=== PATIENT | female | born 2005 ===

== ENCOUNTER 2024-10-25 15:09 | Outpatient (AMB) | payer MEDICAID, SELFPAY ==
[2024-10-25 15:20] VITALS: BP 109/67; PULSE 103; RESP 16; TEMP 36.6; O2SAT 97; BMI 23.0
--- NOTE | 2024-10-25 15:20 | OBCLNT_ITS ---
Vital Signs 10/25/24 15:20 Height 1.63 m Height Method Stated Weight 60.895 kg Weight Measurement Method Standing Scale BMI 23.0 BP 109/67 Blood Pressure Source Automatic Cuff Blood Pressure Location Left Upper Arm Position Sitting Respiration 16 Pulse 103 H Pulse Source Monitor Temp 97.8 F Temp Source Oral Pulse Oximetry (%) 97 Oxygen Delivery Method Room Air Allergies/Home Meds Allergies & Medications Allergies No Known Allergies Allergy (Verified 10/25/24 15:25) Medication Reconciliation vits no.130-ferrous fum 27 mg iron-folic acid 800 mcg tablet ( Vitamin) 1 tab PO QDAY 03/04/24 [History Confirmed 10/25/24] docusate sodium 100 mg capsule (Colace) 100 mg PO BID #60 caps 03/13/24 [Rx Confirmed 10/25/24] ferrous sulfate 325 mg (65 mg iron) tablet (FeroSul) 325 mg PO QDAY 03/13/24 [History Confirmed 10/25/24] ibuprofen 800 mg tablet 800 mg PO Q6H PRN pain #120 tabs 03/13/24 [Rx Confirmed 10/25/24] lanolin 50 % topical ointment 1 applic topical TID PRN skin irritation #15 tubes 03/13/24 [Rx Confirmed 10/25/24] Intake Visit Data Collection New Patient or Established: Established Patient (seen at [facility] within 3 years) Reason for Visit:: care Seen by Clinical Staff ONLY (RN/MA): No Log Operations Coordinator Required: No Do You Feel Safe at Home: Yes Authorities Contacted: N/A PCP or OBGYN visit in last 3 months: No Hx Now: Yes Are you currently on any form of Control: No Last menstrual period: 05/18/24 Pain Present Currently: No Pain Scale Used: Linda-Yan/Numerical Pain scale:: 0 Smoking Status Smoking Status: Never smoker Questionnaires Covid-19 Vaccine Questionnaire Has patient been vacinated for Covid-19 Have you been vacinated for Covid-19: No PHQ-9 PHQ-2 Over the last 2 weeks, how often have you been bothered by any of the following problems? 1. Little interest or pleasure in doing things: not at all 2. Feeling down, depressed, or hopeless: not at all Total score: 0 PHQ-9 3. Trouble falling or staying asleep, or sleeping too much: Not at all 4. Feeling tired or having little energy: Not at all 5. Poor appetite or overeating: Not at all 6. Feeling bad about yourself - or that you are a failure or have let yourself or your family down: Not at all 7. Trouble concentrating on things, such as reading the newspaper or watching television: Not at all 8. Moving or speaking so slowly that other people could have noticed? - Or the opposite - being so fidgety or restless that you have been moving around a lot more than usual: not at all 9. Thoughts that you would be better off or of hurting yourself in some way: Not at all Total score: 0 Source: Developed by Drs. Boyd Fontanez, Margarita Del Rio, Bert Rogers and colleagues, with an educational sheila from [employer] Depression screen completed yes Social History Living Situation History Marital Status: Single Lives With: Family Housing: Apartment Housing Other:: Patient stays at home with a 7-month-old daughter. The FOB works the [employer] Tobacco History Smoking Status: Never smoker Second Hand Smoke Exposure: Yes Alcohol History Alcohol Intake: Never Substance Use History Substance Use: no Domestic Abuse History Do You Feel Safe at Home: Yes Past Medical History Past Medical History Have you ever been diagnosed with any of the following: Neurological Problems Meningitis: No Seizures: No Migraine: No Cardiology Problems Cardiac Arrhythmia: No Heart Murmur: No Hypercholesterolemia: No Deep Vein Thrombosis: No Hypertension: No Respiratory Problems Asthma: No Tuberculosis: No Pulmonary Embolism: No Sleep Apnea: No Stomache/Intestinal Problems Celiac Disease: No Gall Bladder Disease: No Colitis: No Diverticulitis: No Irritable Bowel: No Obesity: No Genital/Urinary Problems Renal Disease: No Kidney Stones: No Reproductive Problems Breast Cancer: No Endometriosis: No Fibroids: No Genital Herpes: No Gonorrhea: No Pelvic Inflammatory Disease: No Polycystic Ovarian Syndrome: No Previous Pregnancies: Yes (Vaginal delivery of March 2024 baby weighed 7 pounds 4 ounces. No epidural) Syphilis: No Musculoskeletal Problems Arthritis: No Rheumatoid Arthritis: No Scoliosis: No Fibromyalgia: No Head,Eye,Nose,Throat Problems Glaucoma: No Endocrine Problems Diabetes Mellitus Type 2: No Hyperthyroidism: No Hypothyroidism: No Thyroid Cancer: No Systemic Lupus Erythematosus: No Blood Problems Anemia: Yes (during ) Clotting Problems: No Psychologic Problems Depression: No Anxiety: No Attention Deficit Disorder: No Depression: No Other Problems Hospitalization: Yes (For vaginal delivery March 2024) Autoimmune Disease: No Blood Transfusions: No Chicken Pox: No Surgical History Appendectomy: No Bariatric Surgery: No Breast Surgery: No Cholecystectomy: No History of Present Illness HPI Narrative The patient is a 19-year-old -0-0-1 who just had a baby in March 2024 presents as a new OB. Patient's LMP was 05/18/2025 giving her a due date of 02/22/2025 she is about 18 weeks today and does feel movement. OB Initial Visit Menstrual History Menstrual reliability: definite Flow: normal Menstrual regularity: regular Monthly: Yes Age at menarche: 9 On control pills at conception: No Date of positive home test: 06/05/24 Associated symptoms (LMP): Denies amenorrhea, nausea, vomiting, fatigue, breast tenderness, urinary frequency, irritability, bloating or other OB History : 2 Para: 1 Hx Total # of Abortions (Spontaneous & Elective): 0 # of Living Children: 1 Delivery History 1st : Child's name: Ananda date: 03/24/24 sex: female Gestational age at delivery (weeks): 40 Delivery type: vaginal weight (lbs): 3356.584 g Delivery complications: No complications no epidural she delivered by one of the local midwives. Infection History & Risk Evaluation History of STDs: chlamydia HIV risk evaluation: low risk Hepatitis B risk evaluation: low risk Patient or partner has history of Genital Herpes: No Varicella/chicken pox status: immunized Genetic Screening & History Genetic Screening/Teratology Counseling - Includes patient, baby's father, or anyone in either family with: 1. Patient's age 35 years or older as of estimated date of delivery: No 2. Thalassemia (Lebanese, Korean, Mediterranean, or Background); MCV less than 80: No 3. Neural Tube Defect (Meningomyelocele, Spina Bifida, or Anencephaly): No 4. Congenital Heart Defect: No 5. Down Syndrome: No 6. Faustino-Sachs (Ashkenazi Yarsani, Cajun, Moldovan Swiss): No 7. Emile Disease (Ashkenazi Yarsani): No 8. Familial Dysautonomia (Ashkenazi Yarsani): No 9. Sickle Cell Disease or Trait (): No 10. Hemophilia or other blood disorders: No 11. Muscular Dystrophy: No 12. Cystic Fibrosis: No 13. [place]ba's Chorea: No 14. Mental Retardation/Autism: No 15. Other inherited genetic or chromosomal disorder: No 16. Maternal Metabolic Disorder (EG,TYPE 1 Diabetes, PKU): No 17. Patient or baby's father had a child with defects not listed above: No 18. Recurrent loss or a stillbirth: No 19. Medications (including supplements, vitamins, herbs or otc drugs)/illicit/recreational drugs/alcohol since last menstrual period: No 20. Any other: No Comments/Counseling: Patient desires NIPT. Infection History 1. Live with someone with TB or exposed to TB: No 2. Rash or viral illness since last menstrual period: No 3. Hepatitis B,C: No 4. History of STD: chlamydia Other (see comments) Source: [employer] OB Flowsheet OB Flowsheet Initial Weight: Not Recorded Date -?-?-?-?-?-?-?-?-?-?-?-?- EGA Weight Edema CTX Effacement BP Fundal ht Pres Dilation Effacement Station Visit Note Alb Glu FHR Mov 10/25/24 -?-?-?-?-?-?-?-?-?-?-?-?- 20w 0d 60.895 kg 109/67 140 Review of Systems Constitutional Constitutional: Reports system reviewed and no additional complaints, except as documented and Denies fatigue Comments: Patient states she is tired. She stays at home. The father the baby, Domingo, works in the field. Her daughter is just getting active. She denies nausea vomiting or vaginal bleeding. Gastrointestinal Gastrointestinal: Denies bloating, Denies nausea and Denies vomiting Genitourinary Genitourinary: Denies amenorrhea and Denies urinary frequency Psychiatric Psychiatric: Denies irritability Endocrine Endocrine: Denies fatigue Exam General Limitations: no limitations General Appearance: alert, in no apparent distress, comfortable and cooperative Head Head exam: atraumatic, normocephalic and normal inspection Neck Neck exam: Present normal inspection, full ROM and trachea midline Resp Respiratory exam: Present normal lung sounds bilaterally Card Cardiovascular exam: Present regular rate, normal rhythm and normal heart sounds Abdominal Abdominal exam: Present soft Bimanual exam: Present uterine enlargement (21 week size) Exp OB exam: Present deferred Speculum exam: Present other (deferred) Back Back exam: Present normal inspection and full ROM Psych Psychiatric exam: Present normal affect and normal mood Skin Skin exam: Present warm, dry, intact and normal color Assessment & Plan Diagnosis / Problem List (1) : Status: Acute Qualifiers: Weeks of gestation: 20 weeks Qualified Code(s): Z3A.20 - 20 weeks gestation of Plan: Get PNC labs, Offer NIPT. Order 20 week US. Additional Plan Follow Up: 4 Weeks Office Procedures OB Clinic LOC & Office Proc's Nursing/Assessment Patient Status: Established Patient OB Clinic Nursing Assessment: Medication Reconciliation, Update PMH in EMR and Vital Signs OB Clinic Coordination of Care: Complex Care and Chronic Disease 1-5, Consent,records obtained, informed consent, Education Simp Pt/Fam, Lab and Imaging orders and Staff clarify orders Special Needs: Heart tones Miscellaneous Interventions: Pelvic/Pap Smear Set up Established Patient Charge Established Patient Point Assignment: 150 Established Patient Point Charge: EP Level 4 (120-155) IT HELP DESK ANALYST: Papsmear Pap Smear Procedure Chap[place] in room during procedure?: No OB Ultrasound OB Ultrasound Indication(s):: Size and dates Ultrasound technique:: transabdominal Gestational sac assessment: Presence, location, size, shape:: Intrauterine with heart tones as noted abdominal circumference 19 and 1 sevenths weeks femur length 21-5/7 weeks head measurements 21 weeks
== END 2024-10-25 15:50 | disposition home or self-care (01) ==
LOC: HODSOBC 15:09
PROVIDERS: Supervising Provider Obstetrics & Gynecology; Visit Provider Obstetrics & Gynecology
DX: Z34.82 Encounter for supervision of other normal pregnancy, second trimester (principal); Z3A.20 20 weeks gestation of pregnancy
CPT/HCPCS: 99214; G0463

== ENCOUNTER 2024-11-29 13:26 | Outpatient (AMB) | payer MEDICAID, SELFPAY ==
--- NOTE | 2024-11-29 13:50 | AMB.OBVISIT ---
Vital Signs 11/29/24 13:51 Height 1.63 m Height Method Stated Weight 63.276 kg Weight Measurement Method Standing Scale BMI 23.8 BP 105/66 Blood Pressure Source Automatic Cuff Blood Pressure Location Left Upper Arm Position Sitting Respiration 16 Pulse 100 Pulse Source Monitor Temp 97.2 F Temp Source Oral Pulse Oximetry (%) 99 Oxygen Delivery Method Room Air Allergies/Home Meds Allergies & Medications Allergies No Known Allergies Allergy (Verified 11/29/24 13:52) Medication Reconciliation vits no.130-ferrous fum 27 mg iron-folic acid 800 mcg tablet ( Vitamin) 1 tab PO QDAY 03/04/24 [History Confirmed 11/29/24] docusate sodium 100 mg capsule (Colace) 100 mg PO BID #60 caps 03/13/24 [Rx Confirmed 11/29/24] ferrous sulfate 325 mg (65 mg iron) tablet (FeroSul) 325 mg PO QDAY 03/13/24 [History Confirmed 11/29/24] ibuprofen 800 mg tablet 800 mg PO Q6H PRN pain #120 tabs 03/13/24 [Rx Confirmed 11/29/24] lanolin 50 % topical ointment 1 applic topical TID PRN skin irritation #15 tubes 03/13/24 [Rx Confirmed 11/29/24] Intake Visit Data Collection New Patient or Established: Established Patient (seen at [facility] within 3 years) Reason for Visit:: return OB Seen by Clinical Staff ONLY (RN/MA): No Food And Beverage Order Clerk Required: No Do You Feel Safe at Home: Yes Authorities Contacted: N/A PCP or OBGYN visit in last 3 months: Yes Date of Last PCP or OBGYN visit: 10/25/24 Hx Now: Yes Are you currently on any form of Control: No Pain Present Currently: No Pain Scale Used: Linda-Yan/Numerical Pain scale:: 0 Smoking Status Smoking Status: Never smoker Questionnaires Covid-19 Vaccine Questionnaire Has patient been vacinated for Covid-19 Have you been vacinated for Covid-19: Yes PHQ-9 PHQ-2 Over the last 2 weeks, how often have you been bothered by any of the following problems? 1. Little interest or pleasure in doing things: not at all 2. Feeling down, depressed, or hopeless: not at all Total score: 0 PHQ-9 3. Trouble falling or staying asleep, or sleeping too much: Not at all 4. Feeling tired or having little energy: Not at all 5. Poor appetite or overeating: Not at all 6. Feeling bad about yourself - or that you are a failure or have let yourself or your family down: Not at all 7. Trouble concentrating on things, such as reading the newspaper or watching television: Not at all 8. Moving or speaking so slowly that other people could have noticed? - Or the opposite - being so fidgety or restless that you have been moving around a lot more than usual: not at all 9. Thoughts that you would be better off or of hurting yourself in some way: Not at all Total score: 0 If you checked off any problems, how difficult have these problems made it for you to do your work, take care of things at home, or get along with other people?: not difficult at all Source: Developed by Drs. Boyd Fontanez, Margarita Del Rio, Bert Rogers and colleagues, with an educational sheila from [employer]. Depression screen completed yes Social History Living Situation History Lives With: Family Housing: Apartment Housing Other:: Patient stays at home with a 7-month-old daughter. The FOB works the [employer] Tobacco History Smoking Status: Never smoker Second Hand Smoke Exposure: Yes Alcohol History Alcohol Intake: Never Substance Use History Substance Use: no Domestic Abuse History Do You Feel Safe at Home: Yes Past Medical History Past Medical History Have you ever been diagnosed with any of the following: Neurological Problems Cerebrovascular Accident (CVA): No Transient Ischemic Attacks (TIA): No Meningitis: No Seizures: No Epilepsy: No Multiple Sclerosis: No Migraine: No Head Trauma: No Spinal Cord Injury: No Traumatic Brain Injury: No Cardiology Problems Myocardial Infarction: No Cardiac Arrhythmia: No Atrial Fibrillation: No Heart Murmur: No Hypercholesterolemia: No Congestive Heart Failure: No Deep Vein Thrombosis: No Hypertension: No Hypotension: No Respiratory Problems Chronic Obstructive Pulmonary Disease (COPD): No Asthma: No Tuberculosis: No Pulmonary Embolism: No Sleep Apnea: No Stomache/Intestinal Problems Liver Cancer: No Hepatitis: No Cirrhosis: No Celiac Disease: No Gall Bladder Disease: No Colitis: No Diverticulitis: No Irritable Bowel: No Obesity: No Genital/Urinary Problems Renal Disease: No Kidney Stones: No Reproductive Problems Breast Cancer: No Endometriosis: No Fibroids: No Genital Herpes: No Gonorrhea: No Pelvic Inflammatory Disease: No Polycystic Ovarian Syndrome: No Previous Pregnancies: Yes (Vaginal delivery of March 2024 baby weighed 7 pounds 4 ounces. No epidural) Syphilis: No Musculoskeletal Problems Arthritis: No Rheumatoid Arthritis: No Scoliosis: No Fibromyalgia: No Head,Eye,Nose,Throat Problems Cataracts: No Glaucoma: No Blind: No Retinal Detachment: No Macular Degeneration: No Chronic Ear Infections: No Deafness: No Eye Prosthesis: No Endocrine Problems Diabetes Mellitus Type 1: No Diabetes Mellitus Type 2: No Hypoglycemia: No Howie's Syndrome: No [place]'s Disease: No Hyperthyroidism: No Hypothyroidism: No Thyroid Cancer: No Parathyroid Disease: No Pituitary Disease: No Systemic Lupus Erythematosus: No Syndrome of Inappropriate Antidiuretic Hormone: No Adrenal Disease: No Graves' Disease: No Blood Problems Anemia: Yes (during ) Leukemia: No Hemophilia: No Thalassemia: No Sickle Cell Disease: No Clotting Problems: No Psychologic Problems Schizophrenia: No Recreational Drug Use: No Bipolar Disorder: No Depression: No Anxiety: No Behavior Problems: No Self-Mutilation: No Attention Deficit Disorder: No Attention Deficit Hyperactivity Disorder: No Depression: No Post Traumatic Stress Disorder: No Eating Disorder: No Other Problems Hospitalization: Yes (For vaginal delivery March 2024) Down Syndrome: No Autism: No Developmental Delay: No Cosmetic Surgery: No Shingles: No Falls: No Blood Transfusions: No Blood Transfusion Reaction: No Anesthesia Reactions: No Organ Transplant: No Chemotherapy: No Radiation Therapy: No MRSA: No Vancomycin-Resistant Enterococci: No Chicken Pox: No Cancer: No Surgical History Angioplasty: No Appendectomy: No Bariatric Surgery: No Breast Surgery: No Cancer Surgery: No Cholecystectomy: No Visit JEREMIAS Calculator Estimated Delivery Date Method Current WG Current Estimate 03/14/25 Ultrasound #1 25w 1d Other Estimates 02/22/25 LMP (Certain) 28w 0d Expected Delivery Route/Plan Anticipate Specific Issue/Plans Closely spaced pregnancies. Babies will be 11 months apart at delivery. Initial Weight: Not Recorded Date <del>?</del> EGA Weight Edema CTX Effacement BP Fundal ht Pres Dilation Effacement Station Visit Note Alb Glu FHR Mov 10/25/24 <del>?</del> 20w 0d 60.895 kg 109/67 140 11/29/24 <del>?</del> 25w 0d 63.276 kg 105/66 24 150 active Notes Visit Date: 11/29/24 Last Updated by: Samara Hurtado (OB Clinic)MD Patient is a 19-year-old -0-0-1 who had a baby last March and 2023. Patient is due February 22, 2025 with this making the baby's 11 months apart. She did her glucose test she has no problems she is reporting good movement good energy and has no complaints today. Assessment & Plan Diagnosis / Problem List (1) : Status: Acute Qualifiers: Weeks of gestation: 20 weeks Qualified Code(s): Z3A.20 - 20 weeks gestation of Assessment and Plan: Follow-up in 4 weeks. Additional Plan Follow Up: 4 Weeks Office Procedures OB Clinic LOC & Office Proc's Nursing/Assessment Patient Status: Established Patient OB Clinic Nursing Assessment: BP Monitoring, Medication Reconciliation, Update PMH in EMR and Vital Signs OB Clinic Coordination of Care: Consent,records obtained, informed consent, Education Simp Pt/Fam and Staff clarify orders Special Needs: Heart tones Established Patient Charge Established Patient Point Assignment: 105 Established Patient Point Charge: EP Level 3 (80-115)
[2024-11-29 13:51] VITALS: BP 105/66; PULSE 100; RESP 16; TEMP 36.2; O2SAT 99; BMI 23.8
== END 2024-11-29 14:36 | disposition home or self-care (01) ==
LOC: HODSOBC 13:26
PROVIDERS: Supervising Provider Obstetrics & Gynecology; Visit Provider Obstetrics & Gynecology
DX: Z34.82 Encounter for supervision of other normal pregnancy, second trimester (principal); Z3A.25 25 weeks gestation of pregnancy
CPT/HCPCS: 99213; G0463

== ENCOUNTER 2024-12-22 13:05 | Outpatient (AMB) | payer MEDICAID, SELFPAY ==
--- NOTE | 2024-12-22 13:16 | OBCLNT_ITS ---
Vital Signs 12/22/24 13:17 Height 1.63 m Height Method Stated Weight 63.73 kg Weight Measurement Method Standing Scale BMI 24.0 BP 105/62 Blood Pressure Source Automatic Cuff Blood Pressure Location Right Upper Arm Position Sitting Respiration 18 Pulse 90 Pulse Source Monitor Temp 98 F Temp Source Temporal Artery Scan Pulse Oximetry (%) 99 Oxygen Delivery Method Room Air Allergies/Home Meds Allergies & Medications Allergies No Known Allergies Allergy (Verified 12/22/24 13:18) Medication Reconciliation vits no.130-ferrous fum 27 mg iron-folic acid 800 mcg tablet ( Vitamin) 1 tab PO QDAY 03/04/24 [History Confirmed 12/22/24] ferrous sulfate 325 mg (65 mg iron) tablet (FeroSul) 325 mg PO QDAY 03/13/24 [History Confirmed 12/22/24] polysaccharide iron complex 200 mg iron capsule (EZFE 200) 200 mg PO QDAY #60 caps 01/01/25 [Rx] Intake Visit Data Collection New Patient or Established: Established Patient (seen at [facility] within 3 years) Reason for Visit:: obc Do You Feel Safe at Home: Yes Authorities Contacted: N/A PCP or OBGYN visit in last 3 months: Yes Pain Present Currently: No Smoking Status Smoking Status: Never smoker Questionnaires Covid-19 Vaccine Questionnaire Has patient been vacinated for Covid-19 Have you been vacinated for Covid-19: No PHQ-9 PHQ-2 Over the last 2 weeks, how often have you been bothered by any of the following problems? 1. Little interest or pleasure in doing things: not at all 2. Feeling down, depressed, or hopeless: not at all Total score: 0 PHQ-9 8. Moving or speaking so slowly that other people could have noticed? - Or the opposite - being so fidgety or restless that you have been moving around a lot more than usual: not at all Source: Developed by Drs. Boyd Fontanez, Margarita Del Rio, Bert Rogers and colleagues, with an educational sheila from [employer]. Depression screen completed yes Social History Living Situation History Lives With: Family Housing: Apartment Housing Other:: Patient stays at home with a 7-month-old daughter. The FOB works the [employer] Tobacco History Smoking Status: Never smoker Second Hand Smoke Exposure: Yes Alcohol History Alcohol Intake: Never Substance Use History Substance Use: no Domestic Abuse History Do You Feel Safe at Home: Yes Past Medical History Past Medical History Have you ever been diagnosed with any of the following: Neurological Problems Cerebrovascular Accident (CVA): No Transient Ischemic Attacks (TIA): No Meningitis: No Seizures: No Epilepsy: No Multiple Sclerosis: No Migraine: No Head Trauma: No Spinal Cord Injury: No Traumatic Brain Injury: No Cardiology Problems Myocardial Infarction: No Cardiac Arrhythmia: No Atrial Fibrillation: No Heart Murmur: No Hypercholesterolemia: No Congestive Heart Failure: No Deep Vein Thrombosis: No Hypertension: No Hypotension: No Respiratory Problems Chronic Obstructive Pulmonary Disease (COPD): No Asthma: No Tuberculosis: No Pulmonary Embolism: No Sleep Apnea: No Stomache/Intestinal Problems Liver Cancer: No Hepatitis: No Cirrhosis: No Celiac Disease: No Gall Bladder Disease: No Colitis: No Diverticulitis: No Irritable Bowel: No Obesity: No Genital/Urinary Problems Renal Disease: No Kidney Stones: No Reproductive Problems Breast Cancer: No Endometriosis: No Fibroids: No Genital Herpes: No Gonorrhea: No Pelvic Inflammatory Disease: No Polycystic Ovarian Syndrome: No Previous Pregnancies: Yes (Vaginal delivery of March 2024 baby weighed 7 pounds 4 ounces. No epidural) Syphilis: No Musculoskeletal Problems Arthritis: No Rheumatoid Arthritis: No Scoliosis: No Fibromyalgia: No Head,Eye,Nose,Throat Problems Cataracts: No Glaucoma: No Blind: No Retinal Detachment: No Macular Degeneration: No Chronic Ear Infections: No Deafness: No Eye Prosthesis: No Endocrine Problems Diabetes Mellitus Type 1: No Diabetes Mellitus Type 2: No Hypoglycemia: No Howie's Syndrome: No Price's Disease: No Hyperthyroidism: No Hypothyroidism: No Thyroid Cancer: No Parathyroid Disease: No Pituitary Disease: No Systemic Lupus Erythematosus: No Syndrome of Inappropriate Antidiuretic Hormone: No Adrenal Disease: No Graves' Disease: No Blood Problems Anemia: Yes (during ) Leukemia: No Hemophilia: No Thalassemia: No Sickle Cell Disease: No Clotting Problems: No Psychologic Problems Schizophrenia: No Recreational Drug Use: No Bipolar Disorder: No Depression: No Anxiety: No Behavior Problems: No Self-Mutilation: No Attention Deficit Disorder: No Attention Deficit Hyperactivity Disorder: No Depression: No Post Traumatic Stress Disorder: No Eating Disorder: No Other Problems Hospitalization: Yes (For vaginal delivery March 2024) Down Syndrome: No Autism: No Developmental Delay: No Cosmetic Surgery: No Shingles: No Falls: No Blood Transfusions: No Blood Transfusion Reaction: No Anesthesia Reactions: No Organ Transplant: No Chemotherapy: No Radiation Therapy: No MRSA: No Vancomycin-Resistant Enterococci: No Chicken Pox: No Cancer: No Surgical History Angioplasty: No Appendectomy: No Bariatric Surgery: No Breast Surgery: No Cancer Surgery: No Cholecystectomy: No History of Present Illness HPI Narrative Patient is a 19-year-old -0-0-1 who had a baby last in 2023. Patient is again with a due date of 02/22/2025. She stays at home with her [id number]. The father of the baby works in the [employer]. Visit OB Visit Log OB Flowsheet Initial Weight: Not Recorded Date -?-?-?-?-?-?-?-?-?-?-?-?- EGA Weight Edema CTX Effacement BP Fundal ht Pres Dilation Effacement Station Visit Note Alb Glu FHR Mov 10/25/24 -?-?-?-?-?-?-?-?-?-?-?-?- 20w 0d 60.895 kg 109/67 140 11/29/24 -?-?-?-?-?-?-?-?-?-?-?-?- 25w 0d 63.276 kg 105/66 24 150 active 12/22/24 -?-?-?-?-?-?-?-?-?-?-?-?- 28w 2d 63.73 kg 105/62 28 Or dered GCT ordered CBC i hour GCT elevated at 142, order 2 hour GTT one hour GCT elevated at 142, order 2 hour GTT 140 active JEREMIAS Calculator Estimated Delivery Date Method Current WG Current Estimate 03/14/25 Ultrasound #1 29w 5d Other Estimates 02/22/25 LMP (Certain) 32w 4d Comments: [facility] results from 11/26/2024: Blood type A+ \antibody screen negative\ rubella immune\ RPR nonreactive\ GC negative\ chlamydia negative\ hepatitis B surface antigen negative\ hep C negative\ urine culture negative\hemoglobin low at 9.6. Expected Delivery Route/Plan Anticipate Delivered with Sharri Goldberg CNM in . No epidural. First-degree lacerations. Specific Issue/Plans Closely spaced pregnancies. Babies will be 11 months apart at delivery. Anemia Notes Visit Date: 11/29/24 Last Updated by: Samara Hurtado (OB Clinic)MD Patient is a 19-year-old -0-0-1 who had a baby last March and 2023. Patient is due February 22, 2025 with this making the baby's 11 months apart. She did her glucose test she has no problems she is reporting good movement good energy and has no complaints today. Assessment & Plan Diagnosis / Problem List (1) : Status: Acute Qualifiers: Weeks of gestation: 28 weeks Qualified Code(s): Z3A.28 - 28 weeks gestation of Assessment and Plan: Encourage p.o. iron. Check 2-hour GTT Additional Plan Follow Up: 4 Weeks Office Procedures OB Clinic LOC & Office Proc's Nursing/Assessment Patient Status: Established Patient OB Clinic Nursing Assessment: Medication Reconciliation, Update PMH in EMR and Vital Signs OB Clinic Coordination of Care: Complex Care and Chronic Disease 1-5, Education Complex Pt/Fam and Staff clarify orders Established Patient Charge Established Patient Point Assignment: 85 Established Patient Point Charge: EP Level 3 (80-115)
[2024-12-22 13:17] VITALS: BP 105/62; PULSE 90; RESP 18; TEMP 36.6; O2SAT 99; BMI 24.0
== END 2024-12-22 13:27 | disposition home or self-care (01) ==
LOC: HODSOBC 13:05
PROVIDERS: PCP Obstetrics & Gynecology; Referring Provider Obstetrics & Gynecology; Supervising Provider Obstetrics & Gynecology; Visit Provider Obstetrics & Gynecology
DX: O09.893 Supervision of other high risk pregnancies, third trimester (principal); Z3A.28 28 weeks gestation of pregnancy; O99.013 Anemia complicating pregnancy, third trimester
CPT/HCPCS: 99213; G0463

== ENCOUNTER 2025-01-31 13:14 | Outpatient (AMB) | payer MEDICAID, SELFPAY ==
--- NOTE | 2025-01-31 13:31 | OBCLNT_ITS ---
Vital Signs 01/31/25 13:41 Height 1.63 m Height Method Stated Weight 66.395 kg Weight Measurement Method Standing Scale BMI 25.0 BP 111/69 Blood Pressure Source Automatic Cuff Blood Pressure Location Left Upper Arm Position Sitting Respiration 18 Pulse 108 H Pulse Source Monitor Temp 97.2 F Temp Source Oral Pulse Oximetry (%) 98 Oxygen Delivery Method Room Air Allergies/Home Meds Allergies & Medications Allergies No Known Allergies Allergy (Verified 01/31/25 13:42) Medication Reconciliation vits no.130-ferrous fum 27 mg iron-folic acid 800 mcg tablet ( Vitamin) 1 tab PO QDAY 03/04/24 [History Confirmed 01/31/25] ferrous sulfate 325 mg (65 mg iron) tablet (FeroSul) 325 mg PO QDAY 03/13/24 [History Confirmed 01/31/25] polysaccharide iron complex 200 mg iron capsule (EZFE 200) 200 mg PO QDAY #60 caps 01/01/25 [Rx Confirmed 01/31/25] Intake Visit Data Collection New Patient or Established: Established Patient (seen at [facility] within 3 years) Reason for Visit:: ob visit Do You Feel Safe at Home: Yes Authorities Contacted: N/A PCP or OBGYN visit in last 3 months: Yes Smoking Status Smoking Status: Never smoker Questionnaires PHQ-9 PHQ-2 Over the last 2 weeks, how often have you been bothered by any of the following problems? 1. Little interest or pleasure in doing things: not at all PHQ-9 8. Moving or speaking so slowly that other people could have noticed? - Or the opposite - being so fidgety or restless that you have been moving around a lot more than usual: not at all Source: Developed by Drs. Boyd Fontanez, Margarita Del Rio, Bert Rogers and colleagues, with an educational sheila from [employer]. Social History Living Situation History Lives With: Family Housing: Apartment Housing Other:: Patient stays at home with a 7-month-old daughter. 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: Past Medical History Past Medical History: No Hx Neurological Disorders, No Hx Hypothyroidism, No Hx Hyperthyroidism, No Hx Breast Cancer, No Hx Cardiac Disorders, No Hx Hypertension, No Hx Cancer, No Hx Blood Disorders, Yes Hx Anemia (during ), No Hx Gastrointestinal Disorders, No Hx Renal Disease, No Hx Deep V ein Thrombosis, No Hx Diabetes Mellitus Type 1, No Hx Diabetes Mellitus Type 2 and No Hx Polycystic Ovarian Syndrome Care OB Visit Log OB Flowsheet Initial Weight: Not Recorded Date -?-?-?-?-?-?-?-?-?-?-?-?- EGA Weight BP Alb Glu CTX Pres Fundal ht FHR Mov Dilation Station Effacement Hx Notes Visit Note 10/25/24 -?-?-?-?-?-?-?-?-?-?-?-?- 20w 0d 60.895 kg 109/67 140 11/29/24 -?-?-?-?-?-?-?-?-?-?-?-?- w 0d 63.276 kg 105/66 24 150 active 12/22/24 -?-?-?-?-?-?-?-?-?-?-?-?- 28w 2d 63.73 kg 105/62 28 140 active Ordered GCT ordered CBC i hour GCT elevated at 142, order 2 hour GTT one hour GCT elevated at 142, order 2 hour GTT 01/31/25 -?-?-?-?-?-?-?-?-?-?-?-?- 34w 0d 66.395 kg 111/69 34 156 active +FM, No UCs, NO LOF JEREMIAS Calculator Estimated Delivery Date Method Current WG Current Estimate 03/14/25 Ultrasound #1 34w 1d Other Estimates 02/22/25 LMP (Certain) 37w 0d Comments: labs scanned on the chart A positive\antibody negative\rubella immune\RPR nonreactive\hep B S Ag negative\hep C negative\HIV negative. Patient was anemic with a hemoglobin of 9.6. NIPT 46XX. LMP 05/18/24 Expected Delivery Route/Plan Anticipate Delivered with Sharri Goldberg CNM in . No epidural. First-degree lacerations. Specific Issue/Plans Closely spaced pregnancies. Babies will be 11 months apart at delivery. Anemia Notes Visit Date: 11/29/24 Last Updated by: Samara Hurtado (OB Clinic)MD Patient is a 19-year-old -0-0-1 who had a baby last March and 2023. Patient is due February 22, 2025 with this making the baby's 11 months apart. She did her glucose test she has no problems she is reporting good movement good energy and has no complaints today. Office Procedures OB Clinic LOC & Office Proc's Nursing/Assessment Patient Status: Established Patient OB Clinic Nursing Assessment: Medication Reconciliation, Update PMH in EMR and Vital Signs OB Clinic Coordination of Care: Education Complex Pt/Fam, Consent,records obtained, informed consent, Lab and Imaging orders and Staff clarify orders Special Needs: Heart tones Established Patient Charge Established Patient Point Assignment: 110 Established Patient Point Charge: EP Level 3 (80-115) Assessment & Plan Diagnosis / Problem List (1) Anemia affecting : Status: Acute Qualifiers: Trimester: third trimester Qualified Code(s): O99.013 - Anemia complicating , third trimester (2) : Status: Acute Qualifiers: Weeks of gestation: 34 weeks Qualified Code(s): Z3A.34 - 34 weeks gestation of Assessment and Plan: Need ultrasound for size and dates
[2025-01-31 13:41] VITALS: BP 111/69; PULSE 108; RESP 18; TEMP 36.2; O2SAT 98; BMI 25.0
== END 2025-01-31 14:19 | disposition home or self-care (01) ==
LOC: HODSOBC 13:14
PROVIDERS: PCP Obstetrics & Gynecology; Referring Provider Obstetrics & Gynecology; Supervising Provider Obstetrics & Gynecology; Visit Provider Obstetrics & Gynecology
DX: O09.893 Supervision of other high risk pregnancies, third trimester (principal); Z3A.34 34 weeks gestation of pregnancy; O99.013 Anemia complicating pregnancy, third trimester
CPT/HCPCS: 99213; G0463

== ENCOUNTER 2025-02-14 13:45 | Outpatient (AMB) | payer MEDICAID, SELFPAY ==
[2025-02-14 14:23] VITALS: BP 104/65; PULSE 104; RESP 17; TEMP 36.5; O2SAT 97; BMI 24.6
--- NOTE | 2025-02-14 14:23 | OBCLNT_ITS ---
Vital Signs 02/14/25 14:23 Height 1.63 m Height Method Stated Weight 65.544 kg Weight Measurement Method Standing Scale BMI 24.6 BP 104/65 Blood Pressure Source Automatic Cuff Blood Pressure Location Right Upper Arm Position Sitting Respiration 17 Pulse 104 H Pulse Source Monitor Temp 97.7 F Temp Source Temporal Artery Scan Pulse Oximetry (%) 97 Oxygen Delivery Method Room Air Allergies/Home Meds Allergies & Medications Allergies No Known Allergies Allergy (Verified 02/14/25 14:24) Medication Reconciliation vits no.130-ferrous fum 27 mg iron-folic acid 800 mcg tablet ( Vitamin) 1 tab PO QDAY 03/04/24 [History Confirmed 02/14/25] Intake Visit Data Collection New Patient or Established: Established Patient (seen at [facility] within 3 years) Reason for Visit:: OBC 36WEEKS GBS Seen by Clinical Staff ONLY (RN/MA): No 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 1. Little interest or pleasure in doing things: not at all 2. Feeling down, depressed, or hopeless: not at all Total score: 0 PHQ-9 3. Trouble falling or staying asleep, or sleeping too much: Not at all 4. Feeling tired or having little energy: Not at all 5. Poor appetite or overeating: Not at all 6. Feeling bad about yourself - or that you are a failure or have let yourself or your family down: Not at all 7. Trouble concentrating on things, such as reading the newspaper or watching television: Not at all 8. Moving or speaking so slowly that other people could have noticed? - Or the opposite - being so fidgety or restless that you have been moving around a lot more than usual: not at all 9. Thoughts that you would be better off or of hurting yourself in some way: Not at all Total score: 0 If you checked off any problems, how difficult have these problems made it for you to do your work, take care of things at home, or get along with other people?: not difficult at all Source: Developed by Drs. Boyd Fontanez, Margarita Del Rio, Bert Rogers and colleagues, with an educational sheila from [employer]. Depression screen completed yes Social History Living Situation History Marital Status: Life Partner Lives With: Family Housing: Apartment Housing Other:: Patient stays at home with a 7-month-old daughter. The FOB works the [employer] Tobacco History Smoking Status: Never smoker Second Hand Smoke Exposure: Yes Alcohol History Alcohol Intake: Never Substance Use History Substance Use: no Domestic Abuse History Do You Feel Safe at Home: Yes HEADER DOCK: Past Medical History Past Medical History: No Hx Neurological Disorders, No Hx Hypothyroidism, No Hx Hyperthyroidism, No Hx Breast Cancer, No Hx Cardiac Disorders, No Hx Hypertension, No Hx Cancer, No Hx Blood Disorders, Yes Hx Anemia (during ), No Hx Gastrointestinal Disorders, No Hx Renal Disease, No Hx Deep Vein Thrombosis, No Hx Diabetes Mellitus Type 1, No Hx Diabetes Mellitus Type 2 and No Hx Polycystic Ovarian Syndrome Other Relevant History: No significant past medical history History of Present Illness HPI Narrative Patient is a 19-year-old -0-0-1 who presents for care. LMP 05/18/2025 EDC 02/22/2025 Care OB Visit Log OB Flowsheet Initial Weight: Not Recorded Date -?-?-?-?-?-?-?-?-?-?-?-?- EGA Weight BP Alb Glu CTX Pres Fundal ht FHR Mov Dilation Station Effacement Hx Notes Visit Note 10/25/24 -?-?-?-?-?-?-?-?-?-?-?-?- 20w 0d 60.895 kg 109/67 140 11/29/24 -?-?-?-?-?-?-?-?-?-?-?-?- 25w 0d 63.276 kg 105/66 24 150 active 12/22/24 -?-?-?-?--?-?-?-?-?-?-?-?- 28w 2d 63.73 kg 105/62 28 140 active Ordered GCT ordered CBC i hour GCT elevated at 142, order 2 hour GTT one hour GCT elevated at 142, order 2 hour GTT 01/31/25 -?-?-?-?-?-?-?-?-?-?-?-?- 34w 0d 66.395 kg 111/69 34 156 active +FM, No UCs, NO LOF 02/14/25 -?-?-?-?-?-?-?-?-?-?-?-?- 36w 0d 65.544 kg 104/65 occasional cephalic 36 145 active 0 -2 70 Some contractions. Positive movement. Group B strep culture done. JEREMIAS Calculator Estimated Delivery Date Method Current WG Current Estimate 03/14/25 Ultrasound #1 36w 1d Other Estimates 02/22/25 LMP (Certain) 39w 0d Comments: LMP 05/18/2025 EDC 02/22/2025 Expected Delivery Route/Plan LMP 05/18/2025 anticipate labs on chart from [facility]. A +/antibody screen negative/rubella immune /RPR nonreactive//HIV negative/ hepatitis B surface antigen negative/ GC chlamydia negative/hepatitis C negative /urinalysis negative/1-hour glucose 142/normal NIPT 46XX. Patient is anemic with a hemoglobin of 9.6. Delivered with Sharri Goldberg CNM in . No epidural. First-degree lacerations. Specific Issue/Plans Closely spaced pregnancies. Babies will be 11 months apart at delivery. Anemia Notes Visit Date: 02/14/25 Last Updated by: Samara Hurtado (OB Clinic)MD Discussed labor. Discussed kick counts. Patient declines epidural. She did not have an epidural last time. She stated she pushed about an hour last time. Visit Date: 11/29/24 Last Updated by: Samara Hurtado (OB Clinic)MD Patient is a 19-year-old -0-0-1 who had a baby last March and 2023. Patient is due February 22, 2025 with this making the baby's 11 months apart. She did her glucose test she has no problems she is reporting good movement good energy and has no complaints today. Office Procedures OB Clinic LOC & Office Proc's Nursing/Assessment Patient Status: Established Patient OB Clinic Nursing Assessment: Medication Reconciliation, Update PMH in EMR and Vital Signs OB Clinic Coordination of Care: Complex Care and Chronic Disease 1-5, Consent,records obtained, informed consent, Education Simp Pt/Fam, Lab and Imaging orders and Staff clarify orders Special Needs: Heart tones Miscellaneous Interventions: Culture Specimen Collection Established Patient Charge Established Patient Point Assignment: 145 Established Patient Point Charge: EP Level 4 (120-155)
== END 2025-02-14 14:35 | disposition home or self-care (01) ==
LOC: HODSOBC 13:45
PROVIDERS: PCP Obstetrics & Gynecology; Referring Provider Obstetrics & Gynecology; Supervising Provider Obstetrics & Gynecology; Visit Provider Obstetrics & Gynecology
DX: Z34.83 Encounter for supervision of other normal pregnancy, third trimester (principal); Z3A.36 36 weeks gestation of pregnancy; Z36.85 Encounter for antenatal screening for Streptococcus B
CPT/HCPCS: 99214; G0463

== ENCOUNTER 2025-02-15 17:44 | Inpatient (IN) | payer MEDICAID, SELFPAY ==
[2025-02-15] VITALS (62 sets, daily range): BP systolic 107–120; BP diastolic 61–75; PULSE 92–142; RESP 16–99; TEMP 36.8–37.1; O2SAT 96–100; BMI 25.0
--- NOTE | 2025-02-15 19:29 | XR_ITS ---
Examination: Complete OB ultrasound greater than 14 weeks Date and time of exam: February 15, 2025 1939 hours INDICATIONS: Onset of pelvic contractions today, unknown size and dates Findings: Viable intrauterine single fetus with single amniotic sac presentation cephalic Cardiac motion 132 BPM Placenta fundal grade 2 Umbilical cord insertion 3 vessel seen Amniotic fluid index 15 cm spine maternal left Cervix 3.1 cm Ovaries are obscured by bowel gas. Composite estimated gestational age based on BPD, head circumference, abdominal circumference, femur length is 37 weeks 4 days Estimated weight 3199 g. Survey of intracranial anatomy, spinal anatomy, abdominal anatomy, four-chamber heart performed with no abnormalities identified. Impression: Viable intrauterine gestation cephalic presentation.
[2025-02-15 19:56] LABS: Basophils % (Auto) 0 % (0-2.5); Eosinophils # (Auto) 0.1 Thou/mm3 (0.0-0.5); Eosinophils % (Auto) 1 % (0-10); Hematocrit 25.5 % (36.0-46.0); Immature Granulocytes % (Auto) 1 % (0-0); Immature Granulocytes Auto 0.08 Thou/mm3 (0.00-0.00); Lymphocytes # (Auto) 1.2 Thou/mm3 (1.0-4.8); Lymphocytes % (Auto) 13 % (10-50); Mean Corpuscular HGB Conc 30.6 g/dl (31.0-37.0); Mean Corpuscular Hemoglobin 18.7 pg (25.0-35.0); Mean Corpuscular Volume 61 fL (80-100); Monocytes # (Auto) 0.7 Thou/mm3 (0.0-0.8); Monocytes % (Auto) 7 % (0-12); Neutrophils # (Auto) 7.3 Thou/mm3 (1.8-7.7); Neutrophils % (Auto) 78 % (37-80); Nucleated Red Blood Cell # 0.05 Thou/mm3 (0.00-0.00); Nucleated Red Blood Cell % 1 /100 WBC (0); Platelet Count 387 Thou/mm3 (140-440); RDW Standard Deviation 40.8 fL (36.4-46.3); Red Blood Count 4.17 Miln/mm3 (4.00-5.20); White Blood Count 9.3 Thou/mm3 (3.6-11.0)
[2025-02-15 19:58] LABS: Hemoglobin 7.8 g/dL (12.0-16.0)
[2025-02-15] MEDS: RINGERS LACTATED 1000 ML 1,000 ML 100 ML IV (20:11)
[2025-02-15] MEDS: Ampicillin Inj 2,000 MG in SODIUM CHLORIDE 0.9% (POP) 100 ML 200 MG IV (20:13)
[2025-02-15] MEDS: BETAMET ACET/BETAMET NA PH (Celestone) 6 MG/ML VIAL 12 MG IM (20:15)
[2025-02-15 20:30] LABS: Path Review Blood Smear Sent to Pathologist
[2025-02-15 20:55] LABS: Amphetamine/Metham Scrn,Ur OB Negative (Negative); Benzoylecgonine Screen, Ur OB Negative (Negative); Opiate Screen,Urine OB Negative (Negative); THC Screen,Urine OB Negative (Negative)
[2025-02-15 20:59] LABS: Syphilis Nonreactive (Nonreactive)
[2025-02-15] MEDS: Ampicillin Inj 1,000 MG in SODIUM CHLORIDE 0.9% (Popper) 50 ML 50 MG IV (23:49)
[2025-02-16] VITALS (38 sets, daily range): BP systolic 99–131; BP diastolic 56–77; PULSE 71–124; RESP 16–17; TEMP 36.6–37.6; O2SAT 97–100
[2025-02-16] MEDS: fentaNYL CIT INJ 50 mCg/ML AMP 2ML 100 MCG IVP (02:00)
[2025-02-16] MEDS: RINGERS LACTATED 1000 ML 1,000 ML 100 ML IV (02:03)
[2025-02-16] MEDS: TRANEXAMIC ACID 1,000 MG IVPB 1,000 MG/100 ML BAG 200 MG IV ×2 (02:37→03:59)
[2025-02-16] MEDS: MISOPROSTOL 200 mCg TABLET 800 MCG PR (02:38)
[2025-02-16] MEDS: OXYTOCIN INJ 10 UNIT/ML VIAL IM (02:39)
[2025-02-16] MEDS: BENZO/LANO/ALOE (Dermoplast) 60 GM CAN 1 SPRAY TOP (02:47)
--- NOTE | 2025-02-16 03:15 | PD.LDHP ---
Documentation for date of: 02/16/25 OB Labor/Induct. HPI History of Present Illness Chief complaint: labor : 2 Para: 1 Term pregnancies: 1 pregnancies: 0 Living children: 1 History of Abortions: Spontaneous and Elective: 0 History of Vaginal deliveries: 1 History of sections: No History of : No Date of last menstrual period: 05/18/24 JEREMIAS: 03/14/25 Gestational Age (weeks): 36 Gestational Age (days): 2 Gestational age based on last menstrual period: 39 History of present illness: This is a 19-year-old 2 para 1 admit to labor and delivery complaining of contractions since 1 PM. Patient has been followed at [facility] for OB care. Her first visit was at 20 weeks. Her last. May 18, 2024. This gives estimated due date March 14, 2025. Patient denies social habits. Denies surgery. Denies chronic illness. Patient is A+, antibody screen negative, RPR nonreactive, rubella immune, hepatitis B negative, hep C negative, HIV negative, GC and Chlamydia were negative. And GBS unknown. And there is no documentation of third trimester labs. Denies leaking or bleeding History of Present Dating criteria: based on 2nd trimester US only Adequate Care: Yes Ultrasounds: normal mid trimester US Obstetrical complications: none Medical complications: none Labs Labs: Positive: Rubella Titre, Negative: RPR, Hepatitis B, HIV, Chlamydia and Gonorrhea and Unknown: Herpes Type 1, Herpes Type 2, Group Beta Strep and Covid-19 Review of Systems Review of Systems Systems Reviewed: All systems reviewed, normal except as documented Past Medical History Surgical History SURGICAL: Negative Section Meds Home Medications and Allergies Home Medications ?Medication ?Instructions ?Recorded ?Confirmed ?Type vits no.130-ferrous fum 1 tab PO QDAY 03/04/24 02/15/25 History 27 mg iron-folic acid 800 mcg tablet ( Vitamin) ferrous sulfate 325 mg (65 mg mg 02/15/25 History iron) tablet (FeroSul) Allergies Allergy/AdvReac Type Severity Reaction Status Date / Time No Known Allergies Allergy Verified 02/15/25 18:28 OB Exam Physical Exam Vital signs: Temp Pulse Resp BP Pulse Ox 98.7 F 88 16 112/66 99 02/15/25 23:50 02/16/25 02:55 02/15/25 17:53 02/16/25 02:55 02/16/25 02:36 Narrative: Alert and oriented. Normal heart rate and rhythm. Lungs clear no wheezes. Gravid abdomen. Gynecoid pelvis. Estimated weight 7 pounds 10 ounces. Vaginal exam admission was 80% and 4. -2. Bag water intact. Contractions every 3 to 4 minutes. heart rate category 1 with accelerations and moderate variability Detailed Labor and Delivery Exam Dilation (cm): 4 Effacement (%): 80 Cervix position: mid station: -1 Consistency: soft Presentation: Vertex Cervical ripeness score: 8 Membranes: intact Baseline heart rate: 145 monitor accelerations: 15x15 monitor decelerations: None buttermaker continuous churn variability: Moderate (11-25) Contraction frequency (min): 4-5 Contraction duration (sec): 30 Tachysystole: No Contraction intensity: Moderate OB Results Labs 02/15/25 19:25 Labs: Short CBC 02/15/25 Range/Units 19:25 WBC 9.3 (3.6-11.0) Thou/mm3 Hgb 7.8 L (12.0-16.0) g/dL Hct 25.5 L (36.0-46.0) % Plt Count 387 (140-440) Thou/mm3 OB Assessment & Plan Assessment and Plan (1) Normal labor and delivery: Status: Acute Additional Plan Induction method: none Plan: anticipate NVD, GBS prophylaxis tx and consult MD lowe
[2025-02-16] MEDS: OXYTOCIN in NS 20 units 20 UNIT/1,000 ML BAG 999 UNIT IV (03:20)
--- NOTE | 2025-02-16 03:20 | OBDSUM_ITS ---
Data (Jin) Data Hx Section: No : 2 Term: 1 : 0 Livin Abortions: Spontaneous & Theraputic: 0 Delivery Data (Jin) Labor Data Initiation of labor: Spontaneous Induction/Augmentation Agent: None ROM date: 02/16/25 ROM time: 02:32 Amniotic membrane rupture type: Artificial Amniotic fluid description: Clear and Bloody Delivery Data EDC: 03/14/25 EDC calculated by:: LMP/early US confirmation Date of arrival to unit: 02/15/25 Time of arrival to unit: 17:44 Onset of labor date: 02/16/25 Onset of labor time: 01:00 Complete dilation date: 02/16/25 Complete dilation time: 02:15 Luning delivery date: 02/16/25 Luning delivery time: 02:34 Gestational age (weeks): 36 Gestational age (days): 2 Placenta delivery date: 02/16/25 Placenta delivery time: 02:40 Stage 1 total time: Labor - Stage 1 Duration 1 hours and 15 minutes Delivered by: Ann Shepherd Delivery nurse: Clau Turpin RN [facility] nurse: Floresita Desai RN, Joleen Jade RN [place] Refinisher at delivery: No Support person(s) at delivery: Mother of patient Other staff at delivery: Floresita Kraus RNC Shivam Gonzalez RN [place] [id number] Delivery Method Delivery method: Normal Vaginal Delivery Presentation: Vertex position: OA Anesthesia Type Anesthesia Type: None Delivery Room Medications Delivery room medications given: Fentanyl x1 Placenta Placenta delivery description: Spontaneous (intact, inspected) Cord blood sent to lab: Yes cord blood collection: Cord Blood Type Episiotomy Episiotomy description: None (intact) EBL Estimated blood loss (ml): 400 Umbilical Cord cord description: 3 Vessels Data (Jin) Data order: 1 's gender: Female Identification band number: [id number] weight (gms): 3515 g Weight (pounds): 7 lbs and 12.0 ozs Luning length: 53.25 cm 1 minute: 9 5 minutes: 9
[2025-02-16] MEDS: IBUPROFEN TAB 400 MG TABLET 800 MG PO ×2 (04:05→15:32)
[2025-02-16] MEDS: DOCUSATE SOD 100 MG CAPSULE PO ×2 (08:36→20:16)
[2025-02-16 12:33] LABS: Basophils % (Auto) 0 % (0-2.5); Eosinophils % (Auto) 0 % (0-10); Immature Granulocytes % (Auto) 1 % (0-0); Immature Granulocytes Auto 0.19 Thou/mm3 (0.00-0.00); Lymphocytes # (Auto) 1.4 Thou/mm3 (1.0-4.8); Lymphocytes % (Auto) 8 % (10-50); Mean Corpuscular HGB Conc 30.4 g/dl (31.0-37.0); Mean Corpuscular Hemoglobin 18.7 pg (25.0-35.0); Mean Corpuscular Volume 61 fL (80-100); Monocytes # (Auto) 0.7 Thou/mm3 (0.0-0.8); Monocytes % (Auto) 4 % (0-12); Neutrophils # (Auto) 15.4 Thou/mm3 (1.8-7.7); Neutrophils % (Auto) 87 % (37-80); Nucleated Red Blood Cell # 0.05 Thou/mm3 (0.00-0.00); Nucleated Red Blood Cell % 0 /100 WBC (0); Platelet Count 364 Thou/mm3 (140-440); RDW Standard Deviation 41.2 fL (36.4-46.3); Red Blood Count 3.91 Miln/mm3 (4.00-5.20); White Blood Count 17.7 Thou/mm3 (3.6-11.0)
[2025-02-16 12:40] LABS: Hemoglobin 7.3 g/dL (12.0-16.0)
--- NOTE | 2025-02-16 16:40 | PC.SS ---
ASSISTANT FIELD HOCKEY COACH conducted bedside contact with the patient to address nursing referral indicating patient was late to care.? ASSISTANT FIELD HOCKEY COACH introduced self and role.? ASSISTANT FIELD HOCKEY COACH discussed basis of referral. Patient confirmed late to care (20 weeks) due to the patient?s inability to obtain OB appointment.? Patient informed ASSISTANT FIELD HOCKEY COACH that [facility] could not schedule patient for appointment in timely manner.? Patient was then advised to seek OB services at other location.? Patient able to schedule OB appointment with Kaylie Peters.? Patient confirmed consistency with OB appointments following initial visit.? Infant, Kianna; is the patient?s second child.? Other child is 11 months old.? delivered naturally.? Patient plans on bottle feeding infant.? FOB, Domingo Musa; will be involved in the rearing of the infant. ?Patient is aligned with WIC.? Patient not receiving SNAP or TANF.? Patient denies history of alcohol/drug abuse.? Patient denies CWS intervention.? Patient denies episodes of domestic violence.? Patient denies possessing a history of mental health, reports no current possession of depression or anxiety.? Patient has access to appropriate supplies and equipment; to include a car seat.? Family will provide transportation upon discharge.? Patient describes possessing support system consisting of FOB, parents and extended family.? ASSISTANT FIELD HOCKEY COACH provided the patient with community resources to include Parenting Network and Warm Line.? No further intervention required at this time, certified social workers in health care will be available to address any further concerns.? ASSISTANT FIELD HOCKEY COACH updated bedside nurse.?
[2025-02-16] MEDS: ACETAMINOPHEN 325 MG TABLET 650 MG PO (20:16)
[2025-02-17 00:20] VITALS: BP 103/58; PULSE 72; RESP 17; TEMP 36.8; O2SAT 99
[2025-02-17 03:50] VITALS: BP 107/62; PULSE 91; RESP 17; TEMP 36.9; O2SAT 98
[2025-02-17] MEDS: IBUPROFEN TAB 400 MG TABLET 800 MG PO (04:17)
--- NOTE | 2025-02-17 07:49 | ESPR_ITS ---
Subjective Subjective Interval history: No complaints of pain. No dizziness. Bonding breast-feeding Exam Vital Signs Temp Pulse Resp BP Pulse Ox O2 Del Method 98.4 F 91 17 107/62 98 Room Air 02/17/25 03:50 02/17/25 03:50 02/17/25 03:50 02/17/25 03:50 02/17/25 03:50 02/17/25 03:50 Narrative Exam Vital signs stable afebrile. Pressure soft. Fundus firm below the umbilicus. Perineum intact no swelling. Small lochia. Uterus well involuted. Negative Homans' sign. 2+ DTRs. Objective Labs 02/16/25 12:03 Labs: Laboratory Results - last 24 hr 02/16/25 12:03 WBC 17.7 H D RBC 3.91 L Hgb 7.3 L Hct 24.0 L MCV 61 L MCH 18.7 L MCHC 30.4 L RDW Std Deviation 41.2 Plt Count 364 Neut % (Auto) 87 H Lymph % (Auto) 8 L [place] % (Auto) 4 Eos % (Auto) 0 Baso % (Auto) 0 Neut # (Auto) 15.4 H Lymph # (Auto) 1.4 [place] # (Auto) 0.7 Eos # (Auto) 0.0 Baso # (Auto) 0.0 Immature Gran # (Auto) 0.19 H Absolute Nucleated RBC 0.05 H Immature Gran % 1 H Nucleated RBC % 0 Assessment & Plan Problem List (1) Normal labor and delivery: Status: Acute Plan Comment Plan Comment: Discharge home with baby today. Patient is okay to board if baby is held for bili. Continue vitamins and iron at home. Increase iron foods like broccoli spinach egg. Okay to take Tylenol or ibuprofen for pain. Increase fluids. Discussed ER precautions and parameters. I discussed signs symptoms of infection. Discussed danger signs and symptoms. Return in 3 weeks visit Time Spent With Patient Time: Total time spent is greater than 50% in coordination of care (as documented) at patient's floor/unit and/or counseling patient:
--- NOTE | 2025-02-17 07:52 | ESDS_ITS ---
DS: Providers Provider Date of admission: 02/15/25 19:10 Primary care physician: Physician No Primary/Family Admitting Provider: Boris Damon MD Attending Provider on Admission: Ann Shepherd CNM Consults: 02/16/25 03:50 Referral Routine Comment: Attending Provider on DC: Ann Shepherd CNM Discharging Provider: Ann Shepherd CNM DS: Diagnosis Problem List Completed Was Problem List Reviewed/Reconciled?: Yes Summary/Hosp Course Brief History: This is a 19-year-old 2 para 1 admit to labor and delivery complaining of contractions since 1 PM. Patient has been followed at [facility] for OB care. Her first visit was at 20 weeks. Her last. May 18, 2024. This gives estimated due date March 14, 2025. Patient denies social habits. Denies surgery. Denies chronic illness. Patient is A+, antibody screen negative, RPR nonreactive, rubella immune, hepatitis B negative, hep C negative, HIV negative, GC and Chlamydia were negative. And GBS unknown. And there is no documentation of third trimester labs. Denies leaking or bleeding Peripartum Data Delivery Method: Normal Vaginal Delivery Episiotomy Description: None (intact) Laceration Description: no complications: none Time Spent with Patient Time attestation: Total time spent providing and/or coordinating discharge services: Exam Vital Signs Temp Pulse Resp BP Pulse Ox O2 Del Method 98.4 F 91 17 107/62 98 Room Air 02/17/25 03:50 02/17/25 03:50 02/17/25 03:50 02/17/25 03:50 02/17/25 03:50 02/17/25 03:50 Discharge Plan Plan Patient Disposition: HOME (Self Care) Patient condition on transfer: Stable Prescriptions/Referrals Prescriptions/Med Rec: No Action ferrous sulfate [FeroSul] 325 mg (65 mg iron) tablet 325 mg PO DAILY Vitamin 27 mg iron- 800 mcg tablet 1 tab PO QDAY Referrals: No Primary/Family,Physician [Primary Care Provider] - Patient/Caregiver Discharge Instructions Discharge Activity: resume usual activities Print Language: Mongolian Activity Restrictions/Additional Instructions: Discharge home with baby. Okay to board if baby is held for bili. Continue vitamins and iron twice a day at home. I discussed high iron foods with patient. Patient can take Tylenol or ibuprofen for pain. Increase fluids. Discussed signs symptoms of infection and ER precautions with parameters. And I discussed danger signs and symptoms as well. And patient to return in 3 weeks visit Stand Alone Forms: Marifer Award Info., Patient Portal Info Letter Discharge Order Discharge Orders: Discharge (Routine); Ordered 02/17/25 Ordered By: Ann Shepherd Planned Discharge Date 02/17/25
[2025-02-17 09:59] VITALS: BP 105/65; PULSE 87; RESP 17; TEMP 36.8; O2SAT 98
== END 2025-02-17 15:11 | disposition home or self-care (01) | DRG 560 ==
LOC: S4SX 02-16 03:12 → S4NX 02-16 05:14
PROVIDERS: Admitting Provider Obstetrics & Gynecology; Visit Provider Advanced Practice Midwife
DX: O80 Encounter for full-term uncomplicated delivery (principal); Z37.0 Single live birth; Z3A.39 39 weeks gestation of pregnancy
CPT/HCPCS: 36415; 59409; 76805; 80307; 85025; 86780; 86850; 86900; 86901; 94762; J0290; J0702; J2590; J3010; J3490; J7050; J7120; S0191; A9270

== ENCOUNTER 2025-02-26 19:07 | Inpatient (IN) | payer MEDICAID, SELFPAY ==
[2025-02-26 19:08] VITALS: BMI 20.5
[2025-02-26 19:24] VITALS: BP 98/64; PULSE 137; RESP 18; TEMP 38.9; O2SAT 97
--- NOTE | 2025-02-26 19:28 | PD.EDRME ---
Rapid Medical Screening Exam [facility] Arrival date/time: 02/26/25 19:07 Chief Complaint: Fever Time Seen by Provider: 02/26/25 19:15 Vital signs: Vital Signs Temperature 102.1 F H 02/26/25 19:24 Pulse Rate 137 H 02/26/25 19:24 Respiratory Rate 18 02/26/25 19:24 Blood Pressure 98/64 02/26/25 19:24 Pulse Oximetry (%) 97 02/26/25 19:24 Oxygen Delivery Method Room Air 02/26/25 19:24 [facility] Narrative: Fever since yesterday. Patient is 10 days PP 02/16/25 vaginal delivery. Reports mild pelvic pain. No vomiting or dysuria. Tylenol taken at 1700.
--- NOTE | 2025-02-26 19:30 | XR_ITS ---
Examination: OB Transvaginal ultrasound of the pelvis, complete Technique: Transvaginal sonographic images pelvis performed using vaughn scale imaging Exam date and time: February 26, 2025 2101 hours INDICATIONS: 7 days with onset of pelvic pain today FINDINGS: Uterus 14.4 cm Free fluid/blood in the endometrium No retained products Ovaries are obscured by bowel gas IMPRESSION: enlarged uterus Mild free fluid in the endometrium Negative for retained products of conception.
[2025-02-26 19:59] LABS: Basophils % (Auto) 0 % (0-2.5); Eosinophils # (Auto) 0.1 Thou/mm3 (0.0-0.5); Eosinophils % (Auto) 0 % (0-10); Hematocrit 31.3 % (36.0-46.0); Hemoglobin 9.2 g/dL (12.0-16.0); Immature Granulocytes % (Auto) 1 % (0-0); Immature Granulocytes Auto 0.19 Thou/mm3 (0.00-0.00); Lymphocytes # (Auto) 0.8 Thou/mm3 (1.0-4.8); Lymphocytes % (Auto) 4 % (10-50); Mean Corpuscular HGB Conc 29.4 g/dl (31.0-37.0); Mean Corpuscular Hemoglobin 18.6 pg (25.0-35.0); Mean Corpuscular Volume 63 fL (80-100); Monocytes # (Auto) 0.4 Thou/mm3 (0.0-0.8); Monocytes % (Auto) 2 % (0-12); Neutrophils # (Auto) 19.1 Thou/mm3 (1.8-7.7); Neutrophils % (Auto) 93 % (37-80); Nucleated Red Blood Cell # 0.02 Thou/mm3 (0.00-0.00); Nucleated Red Blood Cell % 0 /100 WBC (0); Platelet Count 941 Thou/mm3 (140-440); RDW Standard Deviation 43.8 fL (36.4-46.3); Red Blood Count 4.95 Miln/mm3 (4.00-5.20); White Blood Count 20.6 Thou/mm3 (3.6-11.0)
[2025-02-26] MEDS: IBUPROFEN TAB 600 MG TABLET PO (20:00)
[2025-02-26] MEDS: cefTRIAXone/D5w 1gm IV premix 1 GM/50 ML BAG IV (20:09)
[2025-02-26 20:20] LABS: Alanine Aminotransferase 18 U/L (10-49); Albumin, Serum 4.6 gm/dL (3.5-5.0); Albumin/Globulin Ratio 2.1 (1.2-2.2); Alkaline Phosphatase 147 U/L (46-116); Anion Gap 9 (7-16); Aspartate Amino Transferase 21 U/L (0-34); BUN/Creatinine Ratio 10 Ratio (12-20); Bilirubin,Total 0.5 mg/dL (0.3-1.2); Blood Urea Nitrogen 6 mg/dL (9-23); Calcium 9.5 mg/dL (8.3-10.6); Calcium (Corrected) 9.5 mg/dL (8.5-10.1); Carbon Dioxide 20.1 mMol/L (20.0-31.0); Chloride 104 mMol/L (98-107); Creatinine (Component) 0.6 mg/dL (0.6-1.3); Estimated Creatinine Clearance 127.4 mL/min (>60); Globulin 2.2 gm/dL (2.3-3.5); Glucose 110 mg/dL (74-106); Osmolality,Calculated 264 (275-295); Potassium 4.2 mMol/L (3.4-5.1); Procalcitonin 0.24 ng/ml (0.0-0.49); Sodium 133 mMol/L (136-145); Total Protein 6.8 gm/dL (5.7-8.2); eGFR > 60 See Note
[2025-02-26 20:50] LABS: Path Review Blood Smear Sent to Pathologist
[2025-02-26 21:18] VITALS: TEMP 37.9
[2025-02-26 21:19] LABS: Collection Type, Urine Clean Catch
[2025-02-26 21:29] LABS: Bilirubin,Urine Negative (Negative); Blood,Urine 1+ (Negative); Clarity,Urine Clear (Clear/Hazy); Color,Urine Yellow (Lt Yel-Yel); Glucose, Urine Negative (Negative); Ketones,Urine Negative (Negative); Leukocyte Esterase,Urine Positive (Negative); Nitrite,Urine Negative (Negative); Protein,Urine 1+ (Neg - Trace); RBC,Urine 38 /hpf (0-3); Squamous Epithelial Cell,Urine 6 /hpf (0-5); Urobilinogen,Urine Negative mg/dL (0.0-1.0); WBC,Urine 66 /hpf (0-5)
--- NOTE | 2025-02-26 22:05 | EDNOTE_ITS ---
<Statement entered by Afua Barahona MD - 02/27/25 04:32> As co-signing physician, I was present and available for consult prn. I concur with the plan and care as documented by the midlevel provider. ED Fever RME/HPI General Chief Complaint: Fever Stated Complaint: FEVER Time Seen by Provider: 02/26/25 19:15 Arrival date/time: 02/26/25 19:07 RME / HPI RME / HPI Narrative: 19-year-old female patient 10 days came in for evaluation regarding fever. Patient said having fever since yesterday getting worse today, associated with pelvic discomfort. Patient had a normal vaginal delivery. Patient denies any sore throat denies any cough denies any chest pain denies any abdominal pain. Denies any vomiting diarrhea. Denies any dysuria. Patient took Tylenol at 5 PM today. Related Data Home Medications ?Medication ?Instructions ?Recorded ?Confirmed vits no.130-ferrous fum 1 tab PO QDAY 4 02/15/25 27 mg iron-folic acid 800 mcg tablet ( Vitamin) ferrous sulfate 325 mg (65 mg 325 mg PO DAILY 02/15/25 02/16/25 iron) tablet (FeroSul) Allergies Allergy/AdvReac Type Severity Reaction Status Date / Time No Known Allergies Allergy Verified 02/26/25 19:08 Review of Systems Review of Systems Narrative Review of Systems: Review of system reviewed and within normal limits except mentioned in HPI Physical Exam Narrative Physical exam: VITAL SIGNS: Reviewed. GENERAL APPEARANCE: Alert and interactive, follows commands, no acute distress, HEAD AND FACE: Non-traumatic. ENT: PERRL, pink conjunctivitis, eyelid no trauma, Mucous membrane moist. NECK: Supple, nontender, no nuchal rigidity. CHEST: No tenderness, no crepitus, no paradoxical movement, no retractions. LUNGS: Clear, well ventilated, symmetric, no rales, no wheezing, no ronchi, no stridor, good breath sounds bilaterally. HEART: Regular rate, regular rhythm, no murmur, no gallops. ABDOMEN: Soft, positive bowel sounds, nondistended, no guarding, nontender, no rebound, no masses, RECTAL: Deferred. GENITAL: Pelvic tenderness NEUROLOGICAL: Gross motor function intact sensory function intact, Appropriate for age. MUSCULOSKELETAL: low back nontender, full range of motion. EXTREMITIES: Nontender, full range of motion. SKIN: Color pink, dry, no rash, no lacerations, no abrasions, no contusions. LYMPHATICS: Deferred. Course Quality Measures none Orders Category Date Time Status COVID-19 Screening Questionnaire NOW Care 02/26/25 22:14 Active Decision to Admit X1 Care 02/26/25 22:14 Active US OB transvaginal Stat Exams 02/26/25 19:30 Completed Blood Culture (Lab) Stat Lab 02/26/25 19:43 Received CBC Stat Lab 02/26/25 19:43 Completed CMP [Comprehensive Metabolic Panel] Stat Lab 02/26/25 19:43 Completed Lactate (Lactic Acid) Stat Lab 02/26/25 19:43 Completed Path Review Blood Smear Stat Lab 02/26/25 19:43 Completed Procalcitonin Stat Lab 02/26/25 19:43 Completed UA [Urinalysis] Stat Lab 02/26/25 21:00 Completed Urine Culture Stat Lab 02/26/25 21:00 Received Ibuprofen Tab [Motrin Tab] Med 02/26/25 19:29 Discontinued 600 mg PO X1 ONE Sodium Chloride 0.9% 1000 ml [Ns] 1,633 ml Med 02/26/25 19:29 Discontinued IV 1,633 mls/hr cefTRIAXone/D5w 1gm IV premix [Rocephin/D5w 1gm IV Med 02/26/25 19:30 Discontinued premix] 1 gm in 50 ml IV X1 Vital Signs Vital signs: Vital Signs Temperature 102.1 F H 02/26/25 19:24 Pulse Rate 137 H 02/26/25 19:24 Respiratory Rate 18 02/26/25 19:24 Blood Pressure 98/64 02/26/25 19:24 Pulse Oximetry (%) 97 02/26/25 19:24 Oxygen Delivery Method Room Air 02/26/25 19:24 Fever MDM Narrative MDM Narrative:: 19-year-old female patient 10 days came in for evaluation regarding fever. Patient said having fever since yesterday getting worse today, associated with pelvic discomfort. Patient had a normal vaginal delivery. Patient denies any sore throat denies any cough denies any chest pain denies any abdominal pain. Denies any vomiting diarrhea. Denies any dysuria. Patient took Tylenol at 5 PM today. Patient WBC count was noted to be 20.6 with predominance of neutrophils. Urinalysis positive for leukocyte esterase, WBC count of 38, WBC of 66, squamous cells 6. No bacteria noted. Ultrasound of pelvis showed enlarged uterus Mild free fluid in the endometrium Negative for retained products of conception. Maternal sepsis was initiated right away. Patient received IV fluids, ceftriaxone IV, Motrin, Spoke with Dr. Damon, P[employer] MILL SUPERINTENDENT call, who admitted the patient Patient data External records reviewed:: None Clinical information provided by:: patient Social determinants that could affect healthcare access:: none Patient has the following chronic illnesses:: Plan How is presenting disease/condition affected by chronic disease/condition?: no chronic disease Evaluation data The following diagnostics were reviewed and interpreted by me:: radiology exa m(s) Lab and/or radiology exams considered but not ordered:: None Interpretation Summary: See results MDM Medications / Prescriptions Medications or Prescriptions considered but not ordered:: None Medication administrations:: Medication Administration History Discontinued Medications Sodium Chloride (Ns) 1,633 mls @ 1,633 mls/hr 30 ml/kg infuse over 60 min (1633 ml) IV .Q1H ONE; Protocol Stop: 02/26/25 20:28 Last Infusion: 02/26/25 21:51 Dose: Infused Documented By: Admin: 02/26/25 20:09 Dose: 1,633 mls/hr Documented By: MOISE Ceftriaxone Sodium/Dextrose (Rocephin/D5w 1gm Iv Premix) 1 gm in 50 mls @ 100 mls/hr IV X1 ONE Stop: 02/26/25 19:59 Last Infusion: 02/26/25 21:18 Dose: Infused Documented By: Admin: 02/26/25 20:09 Dose: 100 mls/hr Documented By: MOISE Ibuprofen (Ibuprofen Tab 600 Mg Tablet) 600 mg PO X1 ONE Stop: 02/26/25 19:30 Last Admin: 02/26/25 20:00 Dose: 600 mg Documented By: Motrin, ceftriaxone IV, IV fluids Consultations Consultation(s) initiated? (list below): Yes Consultation #1 (Physician, Specialty, Details): Dr. Damon P[employer] M[employer] SUPERINTENDENT on-call, thank you Diagnosis Fever Differential Diagnosis: fever of unknown origin, pyelonephritis, viral infection and sepsis Most likely diagnosis given after review of the tests above:: Maternal sepsis Admission Indicated Admission indicated?: indicated Explain why admission is indicated or not indicated:: For IV antibiotic treatment Admission Request Was there a request for admission?: Yes Admission Attestation Admission request attestation: Dr Damon agrees to accept the patient for admission. Disposition Plan Disposition Plan: Admit Discharge Plan Plan Patient Disposition: Admit Acute Care w/in Hospital Discharge Disposition comment: Stable Prescriptions/Referrals Prescriptions/Med Rec: No Action ferrous sulfate [FeroSul] 325 mg (65 mg iron) tablet 325 mg PO DAILY Vitamin 27 mg iron- 800 mcg tablet 1 tab PO QDAY Referrals: Misael Aldrich MD [Primary Care Provider] - In 1 week Problem List Clinical Impression: Sepsis Patient/Caregiver Discharge Instructions Discharge Activity: activity as tolerated Print Language: Lao Stand Alone Forms: Marifer Award Info., Patient Portal Info Letter
[2025-02-26] MEDS: SODIUM CHLORIDE 0.9% 1000 ML 1,000 ML 999 ML IV (22:50)
[2025-02-26 22:59] LABS: Basophils % (Auto) 0 % (0-2.5); Eosinophils # (Auto) 0.1 Thou/mm3 (0.0-0.5); Eosinophils % (Auto) 0 % (0-10); Hematocrit 27.7 % (36.0-46.0); Immature Granulocytes % (Auto) 1 % (0-0); Immature Granulocytes Auto 0.13 Thou/mm3 (0.00-0.00); Lymphocytes # (Auto) 0.9 Thou/mm3 (1.0-4.8); Lymphocytes % (Auto) 5 % (10-50); Mean Corpuscular Hemoglobin 18.4 pg (25.0-35.0); Mean Corpuscular Volume 62 fL (80-100); Monocytes # (Auto) 0.4 Thou/mm3 (0.0-0.8); Monocytes % (Auto) 2 % (0-12); Neutrophils # (Auto) 16.4 Thou/mm3 (1.8-7.7); Neutrophils % (Auto) 92 % (37-80); Nucleated Red Blood Cell % 0 /100 WBC (0); Platelet Count 572 Thou/mm3 (140-440); RDW Standard Deviation 43.3 fL (36.4-46.3); White Blood Count 17.8 Thou/mm3 (3.6-11.0)
[2025-02-26 23:02] LABS: Hemoglobin 8.3 g/dL (12.0-16.0)
[2025-02-26] MEDS: DEXTROSE 5%-0.45% NS 1,000 ML 100 ML IV (23:03)
[2025-02-26 23:05] VITALS: BP 97/62; PULSE 97; RESP 20; TEMP 36.9; O2SAT 99
[2025-02-27 01:00] VITALS: BP 107/60; PULSE 89; RESP 20; TEMP 36.4; O2SAT 97
[2025-02-27] MEDS: PIPER/TAZO 3.375 GM PREMIX 3.375 G/50 ML BAG IV (02:41)
[2025-02-27 03:40] VITALS: BMI 23.1
[2025-02-27 05:52] LABS: Basophils % (Auto) 0 % (0-2.5); Eosinophils # (Auto) 0.1 Thou/mm3 (0.0-0.5); Eosinophils % (Auto) 1 % (0-10); Hematocrit 28.4 % (36.0-46.0); Immature Granulocytes % (Auto) 1 % (0-0); Immature Granulocytes Auto 0.12 Thou/mm3 (0.00-0.00); Lymphocytes # (Auto) 0.6 Thou/mm3 (1.0-4.8); Lymphocytes % (Auto) 4 % (10-50); Mean Corpuscular HGB Conc 28.2 g/dl (31.0-37.0); Mean Corpuscular Hemoglobin 18.3 pg (25.0-35.0); Mean Corpuscular Volume 65 fL (80-100); Monocytes # (Auto) 0.3 Thou/mm3 (0.0-0.8); Monocytes % (Auto) 2 % (0-12); Neutrophils # (Auto) 12.3 Thou/mm3 (1.8-7.7); Neutrophils % (Auto) 92 % (37-80); Nucleated Red Blood Cell % 0 /100 WBC (0); Platelet Count 546 Thou/mm3 (140-440); RDW Standard Deviation 45.3 fL (36.4-46.3); Red Blood Count 4.38 Miln/mm3 (4.00-5.20); White Blood Count 13.4 Thou/mm3 (3.6-11.0)
[2025-02-27] MEDS: ACETAMINOPHEN 325 MG TABLET 500 MG PO (07:55)
[2025-02-27 08:00] VITALS: BP 103/50; PULSE 106; RESP 18; TEMP 36.7; O2SAT 95
[2025-02-27] MEDS: Milk Of Magnesia Susp 30 ML UDC PO (08:03)
[2025-02-27] MEDS: DEXTROSE 5%-0.45% NS 1,000 ML 100 ML IV (08:04)
--- NOTE | 2025-02-27 09:32 | PD.GYNHP ---
Documentation for date of: 02/27/25 NET APPLICATIONS DEVELOPER - HPI History of Present Illness History of present illness: Ms. SIERRA is a 19 year old female 2 para 2 who is status post normal spontaneous vaginal delivery on 02/16/2025 who presented to the emergency room with fever of 1 day duration. Patient denies any chest pain, shortness of breath, fainting or any other systemic symptoms She had a uncomplicated vaginal delivery and is currently breast-feeding patient denies any breast complaints. She denies any dysuria or hematuria Meds Home Medications and Allergies Home Medications ?Medication ?Instructions ?Recorded ?Confirmed ?Type vits no.130-ferrous fum 1 tab PO QDAY 03/04/24 02/27/25 History 27 mg iron-folic acid 800 mcg tablet ( Vitamin) Allergies Allergy/AdvReac Type Severity Reaction Status Date / Time No Known Allergies Allergy Verified 02/26/25 19:08 Exam - NET APPLICATIONS DEVELOPER Vital Signs Temp Pulse Resp BP Pulse Ox O2 Del Method 98.1 F 106 H 18 103/50 L 95 Room Air 02/27/25 08:00 02/27/25 08:00 02/27/25 08:00 02/27/25 08:00 02/27/25 08:00 02/27/25 08:00 Constitutional Constitutional: no acute distress Routine HEENT Exam Head: Present normocephalic and atraumatic Eye: Present EOMI and PERRL ENT: Present mucous membranes moist Routine Neck Exam Neck: Present supple and trachea midline Routine Respiratory Exam Respiratory: Present chest non-tender, lungs clear, normal breath sounds and no resp distress Routine Cardiovascular Exam Cardiovascular: Present RRR Routine Abdominal Exam Abdominal: Present soft and normoactive bowel sounds Routine Extremities Exam Extremities: Present full ROM Routine Skin Exam Skin: Present intact and dry Routine Neurological Exam Neurological: Present alert, oriented X3 and CN II-XII intact Routine Psychiatric Exam Psychiatric: Present normal affect and normal thought process NET APPLICATIONS DEVELOPER - Results Labs 02/27/25 05:05 02/26/25 19:43 Labs: Short CBC 02/26/25 02/26/25 02/27/25 Range/Units 19:43 22:43 05:05 WBC 20.6 H 17.8 H 13.4 H (3.6-11.0) Thou/mm3 Hgb 9.2 L 8.3 L 8.0 L (12.0-16.0) g/dL Hct 31.3 L 27.7 L 28.4 L (36.0-46.0) % Plt Count 941 H D 572 H D 546 H (140-440) Thou/mm3 BMP 02/26/25 19:43 Sodium 133 L Potassium 4.2 Chloride 104 Carbon Dioxide 20.1 BUN 6 L Creatinine 0.6 Glucose 110 H Calcium 9.5 Liver Function 02/26/25 Range/Units 19:43 Total Bilirubin 0.5 (0.3-1.2) mg/dL AST 21 (0-34) U/L ALT 18 (10-49) U/L Alkaline Phosphatase 147 H (46-116) U/L Albumin 4.6 (3.5-5.0) gm/dL Urine 02/26/25 Range/Units 21:00 Urine Color Yellow (Lt Yel-Yel) Urine Clarity Clear (Clear/Hazy) Urine pH 7.0 (5.0-7.0) Ur Specific [place] 1.030 (1.001-1.035) Urine Protein 1+ A (Neg - Trace) Urine Glucose (UA) Negative (Negative) Assessment and Plan Assessment and plan (1) Sepsis: Status: Acute (2) fever: Status: Acute Assessment and plan: 19-year-old 2 para 2 with fever 2 weeks No specific localizing signs found on admission/testing Admit for IV antibiotics and inpatient monitoring Will plan to discharge home when she is 24 hours afebrile Quality Measures Quality Measures none
[2025-02-27 12:00] VITALS: BP 112/70; PULSE 92; RESP 18; TEMP 36.4; O2SAT 98
[2025-02-27] MEDS: PIPER/TAZO 3.375 GM PREMIX 3.375 GM/50 ML BAG IV ×2 (13:29→21:24)
[2025-02-27 16:00] VITALS: BP 121/68; PULSE 103; RESP 18; TEMP 36.9; O2SAT 97
[2025-02-27] MEDS: IBUPROFEN TAB 600 MG TABLET PO (19:17)
[2025-02-27 20:00] VITALS: BP 122/73; PULSE 104; RESP 18; TEMP 37.8; O2SAT 97
[2025-02-28] VITALS: BP 100/53; PULSE 80; RESP 16; TEMP 37.1; O2SAT 99
[2025-02-28 04:00] VITALS: BP 102/66; PULSE 78; RESP 16; TEMP 36.3; O2SAT 99
[2025-02-28] MEDS: DEXTROSE 5%-0.45% NS 1,000 ML 100 ML IV (04:15)
[2025-02-28] MEDS: PIPER/TAZO 3.375 GM PREMIX 3.375 GM/50 ML BAG IV (05:20)
--- NOTE | 2025-02-28 06:36 | ESPR_ITS ---
RE: CHANG SIERRA : 2005 DATE OF SERVICE: 02/28/2025 S: The patient feels much better. She is tolerating a regular diet. She is voiding without difficulty. She is passing flatus. She denies any diarrhea. She denies any chest pain, palpitations, shortness of breath, or lower extremity pain. O: Vital Signs: Blood pressure 102/66, heart rate 78, respirations 16, temperature 97.4, and pulse oximetry is 99% on room air. Lungs: Clear to auscultation bilaterally. Heart: Regular rate and rhythm. Abdomen: Nondistended. Fundus nontender. Extremities: Nontender. LABORATORY DATA: Hemoglobin is 8.0, white blood cell count is 13.4. A: endometritis, resolving. P: Discharge home on Augmentin and Flagyl. Follow up in the office in 7 days. Discharge instructions given. DT: 06:29:14 TT: 06:35:00 Ref: [id number] - TID: [id number]
--- NOTE | 2025-02-28 06:44 | PD.GYNDS ---
Planned Discharge Date 02/28/25 DS: Providers Provider Date of admission: 02/26/25 22:17 Primary care physician: Misael Aldrich MD Admitting Provider: Boris Damon MD Attending Provider on Admission: Srinivasan Arroyo MD Consults: 02/26/25 22:19 Referral Routine Comment: Attending Provider on DC: Srinivasan Arroyo MD Discharging Provider: Srinivasan Arroyo MD DS: Diagnosis Problem List Completed Was Problem List Reviewed/Reconciled?: Yes Hospital Course Hospital Course Hospital course: Ms. SIERRA is a 19 year old female 2 para 2 who is status post normal spontaneous vaginal delivery on 02/16/2025 who presented to the emergency room with fever of 1 day duration. Patient denies any chest pain, shortness of breath, fainting or any other systemic symptoms She had a uncomplicated vaginal delivery and is currently breast-feeding patient denies any breast complaints. She denies any dysuria or hematuria Status at Discharge Functional status at discharge: independent ambulation Time Spent with Patient Time spent: Less than 30 minutes Exam - SPECIAL EDUCATION EDUCATIONAL ASSISTANT Vital Signs Temp Pulse Resp BP Pulse Ox O2 Del Method 97.4 F 78 16 102/66 99 Room Air 02/28/25 04:00 02/28/25 04:00 02/28/25 04:00 02/28/25 04:00 02/28/25 04:00 02/28/25 04:00 Additional findings Additional findings: Endometritis Afebrile 24 hours Discharge home on Augmentin and Flagyl Follow up office 1 week. Discharge Plan Plan Patient Disposition: HOME (Self Care) Patient condition on transfer: Stable Prescriptions/Referrals Prescriptions/Med Rec: New amoxicillin-pot clavulanate 875-125 mg tablet 1 tab PO BID Qty: 10 0RF metronidazole 500 mg tablet 500 mg PO BID Qty: 10 0RF ferrous sulfate 325 mg (65 mg iron) tablet 325 mg PO QDAY Qty: 30 1RF No Action Vitamin 27 mg iron- 800 mcg tablet 1 tab PO QDAY Referrals: Misael Aldrich MD [Primary Care Provider] - Patient/Caregiver Discharge Instructions Discharge Activity: activity as tolerated Other Discharge Activity Instructions:: Follow up with primary OB office in 1 week. Print Language: Turkmen Stand Alone Forms: Marifer Award Info., Patient Portal Info Letter Discharge Order Discharge Orders: Discharge (Routine); Ordered 02/28/25 Ordered By: Srinivasan Arroyo
[2025-02-28 08:00] VITALS: BP 120/79; PULSE 76; RESP 17; TEMP 36.1; O2SAT 100
[2025-02-28 09:49] VITALS: BP 113/74; PULSE 81; RESP 18; TEMP 36.5
== END 2025-02-28 09:51 | disposition home or self-care (01) | DRG 561 ==
LOC: SERX 22:16 → S3SX 02-28 06:11 → SERHOLD 02-28 06:11
PROVIDERS: Physician Assistant; Admitting Provider Obstetrics & Gynecology; Emergency Provider Emergency Medicine; PCP Family Medicine; Visit Provider Specialist
DX: O86.12 Endometritis following delivery (principal)
CPT/HCPCS: 36415; 76817; 80053; 81001; 83605; 84145; 85025; 87040; 87086; 87811; 96361; 96365; 99285; J0696; J2543; J7030; J7042; A9270